=== PATIENT | male | born 1975 | race Caucasian/White ===

== ENCOUNTER 2021-12-26 11:51 | Day surgery (SDC) | payer OTHER, SELFPAY ==
[2021-12-26] VITALS (9 sets, daily range): BP systolic 133–181; BP diastolic 76–103; PULSE 79–90; RESP 18–20; O2SAT 94–100; BMI 33.5
[2021-12-26 11:41] LABS: Coronavirus 19, PCR Not Detected (NotDetected); Influenza A, PCR Not Detected (NotDetected); Influenza B, PCR Not Detected (NotDetected)
--- NOTE | 2021-12-26 11:55 | CA_ITS ---
APPROVED REPORT EXAM: Comprehensive 2D, Doppler, and color-flow Echocardiogram [employer]or Apprentice: Angelina Langley CRT Ht: 6 ft 0 in Wt: 247lbs BSA: 2.33 BP: 135/78 mmHg Indications: Chest Pain, Shortness of Breath, Obesity, Hyperlipidemia, Hypertension/HDD 2D Dimensions LVOT 2.10 cm (M/F) 1.5-2.5 LA Volume 49.80 mL M-Mode Dimensions RVDd 2.98 cm (0.9-2.6) LA Diam 4.30 cm (1.9-4.0) LVDd 4.73 cm (3.5-5.7) Ao Diam 4.06 cm (2.0-3.7) LVDs 2.60 cm (3.5-5.7) IVSd 1.79 cm (0.6-1.1) PWd 0.93 cm (0.6-1.1) EF (Teich) 76.30% FS 45.00% EDV (Teich) 103.90 mL TAPSE 2.56 (<1.7) ESV (Teich) 24.60 mL LV Diastology E Decel Time 183.00 (160-240 msec) E/A Ratio 0.77 MED E' 4.90 (< 7 cm/sec) MED A' 8.00 cm/s E'/MED E' Ratio 14.24 (>14) LAT E' 6.80 (<10 cm/sec) LAT A' 12.10 cm/s E/LAT E' Ratio 10.26 (>14) Aortic Valve AO Peak GR. 7.20 mmHg Mitral Valve MV E Max Nasir. 70.00 (40-130 cm/s) MV A Velocity 90.00 (40-130 cm/s) E/A Ratio 0.77 MV Decel. Time 183.00 (160-240 ms) MV PHT 54.00 ms Pulmonary Valve PV Peak Velocity 185.00 (50-150 cm/s) Tricuspid Valve TR P. Velocity 207.00 cm/s RAP Estimate 10.00 mmHg RVSP 27.10 mmHg Left Ventricle Left atrium is mildly enlarged, left ventricle is normal size, mild concentric left ventricular hypertrophy, visually estimated ejection fraction 55% with no regional wall motion abnormality, grade 1 diastolic dysfunction seen without tissue Doppler evidence of raise left atrial pressure. Right Ventricle Right atrium and right ventricle are normal size and contractility. Aortic Valve Aortic valve is minimally thickened and fibrosed, there is no aortic stenosis or aortic insufficiency. Mitral Valve Mitral valve grossly normal, there is trace mitral regurgitation. Tricuspid Valve Tricuspid valve grossly normal, there is trace tricuspid regurgitation. Tricuspid regurgitation jet velocity is inadequate for calculation of the right ventricular systolic pressure. Pulmonic Valve Pulmonic valve is poorly visualized. Great Vessels Aortic root is normal size. Inferior vena cava is poorly visualized. Pericardium No significant pericardial effusion noted. Conclusion 1. Mildly enlarged left atrium, normal left ventricular size, mild concentric left ventricular hypertrophy, visually estimated ejection fraction 55% with no regional wall motion abnormality, grade 1 diastolic dysfunction seen without tissue Doppler evidence of raise left atrial pressure. 2. Mildly enlarged right ventricle with normal contractility. 3. Trace mitral and tricuspid regurgitation. 4. No significant pericardial effusion noted. Electronically signed by : Luis Carlos Prabhakar MD 12/26/2021 19:59:58
[2021-12-26 12:23] LABS: Basophils % 0.4 % (0.1-2.0); Eosinophils % 0.5 % (0.1-12.0); Hematocrit 49.1 % (42.0-52.0); Hemoglobin 15.9 g/dL (14.1-18.0); Lymphocytes # 1.2 K/mm3 (0.7-4.5); Mean Corpuscular HGB Conc 32.4 g/dL (31.8-35.4); Mean Corpuscular Hemoglobin 28.2 pg (27.0-31.2); Mean Corpuscular Volume 87.1 fl (80-94); Mean Platelet Volume 8.7 fl (7.4-10.4); Monocytes # 0.5 K/mm3 (0.1-1.0); Monocytes % 6.4 % (1.7-9.3); Neutrophils # 6.3 K/mm3 (1.8-7.8); Neutrophils % 77.7 % (37.0-80.0); Platelet Count 167 K/mm3 (142-424); Red Blood Count 5.64 M/mm3 (4.60-6.20); Red Cell Distribution Width 14.3 % (11.5-17.5); White Blood Count 8.1 K/mm3 (4.8-10.8)
[2021-12-26 12:32] LABS: Alanine Aminotransferase 51 U/L (12-78); Albumin Level 5.2 g/dl (3.5-5.0); Alkaline Phosphatase 85 U/L (38-126); Anion Gap 14.9 mEq/L (5-15); Aspartate Amino Transferase 36 U/L (17-59); Bilirubin,Direct 0.2 mg/dl (0.0-0.4); Bilirubin,Indirect 0.7 mg/dL (0.0-0.9); Bilirubin,Total 0.9 mg/dl (0.2-1.3); Bilirubin,Unconjugated 0.7 mg/dL (0.0-1.1); Blood Urea Nitrogen 13 mg/dl (9-20); Calcium 9.5 mg/dl (8.4-10.2); Carbon Dioxide 28 mmol/L (22.0-30.0); Chloride 100 mmol/L (98-107); Chol/HDL Ratio 6.5 (1-3.5); Cholesterol 261 mg/dl (140-200); Creatinine Clearance Estimated 241 mL/min (50-200); Estimated Glomerular Filt Rate 144 ml/min (>60); GFR (African American) 175 ML/MIN (>60); Glucose 131 mg/dl (74-100); HDL Cholesterol 40 mg/dl (40-60); Potassium 3.9 mmoL/L (3.5-5.1); Sodium 139 mmol/L (136-145); Total Protein,Serum 8.2 g/dl (6.3-8.2)
[2021-12-26 12:33] LABS: Triglycerides 457 mg/dl (30-150)
[2021-12-26 12:39] LABS: D-Dimer 0.45 ug/mL (0.0-0.5)
[2021-12-26 12:43] LABS: Direct LDL Cholesterol 137.43 mg/dL (100-129)
[2021-12-26 12:52] LABS: Troponin I < 0.01 ng/ml (0.00-0.034)
--- NOTE | 2021-12-26 12:54 | IR_ITS ---
APPROVED REPORT Patient Location: Outpatient PROCEDURES Left heart catheterization Left ventriculogram Selective coronary angiogram INDICATION Unstable angina, Abnormal EKG with previous inferior infarct Informed consent was obtained prior to the procedure. COMPLICATIONS None Estimated Blood Loss: Less than 10 mls TECHNIQUE One percent lidocaine used to anesthetize the right anterior aspect of the wrist. The right radial artery was accessed via the Seldinger technique. A 6 Kinyarwanda sheath was placed in the right radial artery. 2.5 mg of verapamil, 800 mcg of nitroglycerin, 1mg Lidocaine and 5000 U Heparin were given through the arterial sheath. The papa catheter was also used to perform left heart catheterization, left ventriculogram and selective coronary angiogram. At the end of the procedure the sheath was removed good hemostasis was achieved using Traclet band, patient was transferred to the postop holding area in stable condition. ANGIOGRAPHIC RESULTS The left main artery Normal The left anterior descending artery Normal The circumflex artery Large dominant normal The right coronary artery Vestigial normal The CORREIA ventriculogram reveals Normal 65% The left ventricular end-diastolic pressure 25 mmHg IMPRESSION Normal coronary arteries Normal ejection fraction Elevated LVEDP consistent with diastolic dysfunction PLAN 1. Treatment of diastolic dysfunction with low-dose diuretics 2. Recommend CTA of the pulmonary arteries today. I'm concerned with the Q waves in lead III and the deep S wave in lead I. This does suggest pulmonary hypertension. Patient recently had a severe case of Covid pneumonia and may have experienced pulmonary emboli. Recommend CTA of the pulmonary arteries today 3. If the CT is negative patient for PE he will be referred to Dr. Mckeon for the dyspnea and Covid lung disease Electronically signed by : Kanu Smith MD 12/26/2021 14:44:02
[2021-12-26 13:06] LABS: Thyroid Stimulating Hormone 0.99 uIU/mL (0.465-4.68)
[2021-12-26 13:28] LABS: Free T4 (Free Thyroxine) 0.74 ng/dl (0.78-2.19)
--- NOTE | 2021-12-26 15:04 | CT_ITS ---
FINAL REPORT TECHNIQUE: Then section axial CT images of the chest were obtained with contrast. Three-D reformatted images were also obtained.This study was performed with techniques to keep radiation doses as low as reasonably achievable (ALARA). Individualized dose reduction techniques using automated exposure control or adjustment of mA and/or kV according to the patient''s size were employed. CLINICAL HISTORY: typical angina/dyspnea FINDINGS: There is no evidence of pulmonary embolism. There is no evidence of thoracic aortic aneurysm or dissection. There are multiple bilateral enlarged mediastinal and hilar lymph nodes. There is no evidence of pulmonary mass or suspicious nodule. No localized inflammatory process is seen within the lungs. There is mild dependent atelectasis. Limited images of the upper abdomen demonstrates fatty infiltrated liver. The gallbladder is present. IMPRESSION: 1. No evidence of pulmonary embolism. 2. No mass or localized inflammatory process. Reviewed, Interpreted and Dictated by Hoang Storey III, MD Transcribed by Stefania Monte Authenticated by Hoang Storey III, MD on 12/26/2021 04:09:12 PM [facility]
== END 2021-12-26 16:35 | disposition home or self-care (01) ==
LOC: CATHLAB 11:51
PROVIDERS: Visit Provider Internal Medicine
DX: I25.110 Atherosclerotic heart disease of native coronary artery with unstable angina pectoris (principal); I10 Essential (primary) hypertension; E78.5 Hyperlipidemia, unspecified; Z79.899 Other long term (current) drug therapy; Z20.822 Contact with and (suspected) exposure to COVID-19
CPT/HCPCS: 36415; 71275; 80048; 80061; 80076; 83036; 84439; 84443; 84484; 85025; 85378; 93306; 93458; 99152; C1725; C1769; C9803; J1644; Q9967; U0003; U0005

== ENCOUNTER → 2022-01-02 12:07 | Outpatient (CLI) | payer OTHER, SELFPAY ==
[2022-01-02 13:11] LABS: Anion Gap 16.5 mEq/L (5-15); Blood Urea Nitrogen 18 mg/dl (9-20); Calcium 9.7 mg/dl (8.4-10.2); Carbon Dioxide 27 mmol/L (22.0-30.0); Chloride 101 mmol/L (98-107); Estimated Glomerular Filt Rate 104 ml/min (>60); GFR (African American) 125 ML/MIN (>60); Glucose 160 mg/dl (74-100); Potassium 4.5 mmoL/L (3.5-5.1); Sodium 140 mmol/L (136-145)
== END ==
PROVIDERS: Visit Provider Nurse Practitioner Family
DX: I10 Essential (primary) hypertension (principal); E78.1 Pure hyperglyceridemia; E78.5 Hyperlipidemia, unspecified; I51.89 Other ill-defined heart diseases; R60.0 Localized edema
CPT/HCPCS: 36415; 80048

== ENCOUNTER → 2022-01-30 11:33 | Outpatient (CLI) | payer OTHER, SELFPAY | PROVIDERS: PCP Nurse Practitioner Family; Visit Provider Nurse Practitioner Family | DX: G47.33 Obstructive sleep apnea (adult) (pediatric) (principal); R06.83 Snoring; R40.0 Somnolence | CPT/HCPCS: 95806 ==

== ENCOUNTER → 2023-08-02 12:43 | Outpatient (CLI) | payer OTHER, SELFPAY ==
--- NOTE | 2023-08-02 12:44 | MR_ITS ---
FINAL REPORT CLINICAL HISTORY: Lumbar radicular pain rt hip and bilateral leg pain COMPARISON: None FINDINGS: Multiplanar MR imaging of the lumbar spine was performed without contrast. On the sagittal T2-weighted images, disc degeneration is seen throughout. The vertebral alignment is normal. There are mild endplate changes at several levels. Schmorl's nodes are noted at several levels. No bony mass is identified. The conus has an unremarkable appearance. L1-2: Annular disc bulge and facet arthropathy. There is no significant canal stenosis or neural foraminal narrowing. L2-3: Annular disc bulge, facet arthropathy, and osteophytes. Mild bilateral neural foraminal narrowing. L3-4: An annular bulge is present. Moderate bilateral neural foraminal narrowing. L4-5: An annular bulge is present. Right foraminal inferiorly extruded disc. Right lateral recess stenosis. Right L5 nerve root impingement. Severe bilateral neural foraminal narrowing. L5-S1: Annular disc bulge and facet arthropathy. Mild right and moderate left neural foraminal narrowing. There is spurring of the SI joints. IMPRESSION: Multilevel degenerative disc disease and spondylosis as described, most pronounced at L4-5. Reviewed, Interpreted and Dictated by Hoang Storey III, MD Transcribed by Zenaida Gibbs Authenticated and [facility]
--- NOTE | 2023-08-02 12:49 | XR_ITS ---
FINAL REPORT CLINICAL HISTORY: mri clearnace, hx of welding FINDINGS: ORBITS Look up and look down views were obtained. No fracture is identified. The sinuses are clear. No foreign body is identified. IMPRESSION: No acute process. Reviewed, Interpreted and Dictated by Hoang Storey III, MD Transcribed by Trang Olvera Authenticated and [facility]
== END ==
LOC: RAD 12:44
PROVIDERS: PCP Family Medicine; Visit Provider Family Medicine
DX: M54.16 Radiculopathy, lumbar region (principal)
CPT/HCPCS: 70200; 72148; 76376

== ENCOUNTER 2023-11-05 17:39 | Outpatient (CLI) | payer OTHER, SELFPAY ==
[2023-11-05 18:33] LABS: Basophils % 0.3 % (0.1-2.0); Eosinophils # 0.3 K/mm3 (0.0-0.4); Eosinophils % 4.2 % (0.1-12.0); Hematocrit 46.6 % (42.0-52.0); Hemoglobin 16.4 g/dL (14.1-18.0); Lymphocytes % 25.8 % (10-50); Mean Corpuscular HGB Conc 35.3 g/dL (31.8-35.4); Mean Corpuscular Hemoglobin 31.4 pg (27.0-31.2); Mean Platelet Volume 8.9 fl (7.4-10.4); Monocytes # 0.4 K/mm3 (0.1-1.0); Monocytes % 4.9 % (1.7-9.3); Neutrophils # 5.1 K/mm3 (1.8-7.8); Neutrophils % 64.8 % (37.0-80.0); Platelet Count 179 K/mm3 (142-424); Red Blood Count 5.23 M/mm3 (4.60-6.20); Red Cell Distribution Width 13.7 % (11.5-17.5); White Blood Count 7.9 K/mm3 (4.8-10.8)
[2023-11-05 18:47] LABS: Alanine Aminotransferase 45 U/L (12-78); Albumin Level 4.4 g/dl (3.5-5.0); Albumin/Globulin Ratio 1.5 (1.1-1.8); Alkaline Phosphatase 101 U/L (38-126); Anion Gap 12.5 mEq/L (5-15); Aspartate Amino Transferase 34 U/L (17-59); Bilirubin,Total 0.5 mg/dl (0.2-1.3); Blood Urea Nitrogen 12 mg/dl (9-20); Calcium 9.5 mg/dl (8.4-10.2); Carbon Dioxide 20 mmol/L (22.0-30.0); Chloride 105 mmol/L (98-107); Chol/HDL Ratio 8.7 (1-3.5); Cholesterol 262 mg/dl (140-200); Estimated Glomerular Filt Rate 120 ml/min (>60); GFR (African American) 145 ML/MIN (>60); Globulin 2.9 g/dL (1.3-3.2); Glucose 192 mg/dl (74-100); HDL Cholesterol 30 mg/dl (40-60); Potassium 4.5 mmoL/L (3.5-5.1); Sodium 133 mmol/L (136-145); Total Protein,Serum 7.3 g/dl (6.3-8.2)
[2023-11-05 18:57] LABS: Direct LDL Cholesterol 53.56 mg/dL (100-129)
[2023-11-05 19:17] LABS: Thyroid Stimulating Hormone 1.73 uIU/mL (0.465-4.68)
[2023-11-05 20:33] LABS: Hemoglobin A1C 7.8 % (4.0-6.0)
[2023-11-05 21:24] LABS: Triglycerides 1748 mg/dl (30-150)
== END 2023-11-05 23:59 ==
LOC: LAB.DROPOF 17:39
PROVIDERS: PCP Nurse Practitioner; Visit Provider Nurse Practitioner
DX: Z01.818 Encounter for other preprocedural examination (principal); M51.36 Other intervertebral disc degeneration, lumbar region; Z79.899 Other long term (current) drug therapy
CPT/HCPCS: 80053; 80061; 83036; 84443; 85025